=== PATIENT | female | born 1960 | race Caucasian/White ===

== ENCOUNTER 2024-05-02 08:20 | Outpatient (CLI) | payer MEDICAID ==
[~2024-05-02 08:20] MED LIST: ATOR20TA66 PO; DICL100G59 TOP; DOCU-391 PO; HYDR-3973 PO; MECL-302 PO; PHEN100C12 PO; SENN-263 PO; WARF-55 PO
== END 2024-05-02 23:59 | disposition home or self-care (01) ==
LOC: VAS 08:20
PROVIDERS: ATTEND Surgery
DX: I73.9 Peripheral vascular disease, unspecified (principal)
CPT/HCPCS: 93922; 93925

== ENCOUNTER 2024-08-30 12:37 | Outpatient (CLI) | payer MEDICAID ==
[~2024-08-30 12:37] MED LIST changes: -SENN-263 PO; +SENN-360 PO
== END 2024-08-30 23:59 | disposition home or self-care (01) ==
LOC: VAS 12:37
PROVIDERS: ATTEND Surgery
DX: I73.9 Peripheral vascular disease, unspecified (principal)
CPT/HCPCS: 93922; 93925

== ENCOUNTER 2025-05-24 09:39 | Outpatient (CLI) | payer MEDICAID ==
--- NOTE | 2025-05-24 13:36 | VASCULAR REPORT ---
Lower Extremity Duplex Doppler Reflux Study Date: 05/24/2025 10:06 AM Clinical History: Swelling Comparison: VASC VL JONATHON on DOS: 08/30/24, VASC VL ARTERIAL on DOS: 08/30/24, VASC VL JONATHON on DOS: 05/02/24, VASC VL ARTERIAL on DOS: 05/02/24, CT CT LOWER EXTREMITY on DOS: 02/01/24 Vein Imaging (Right) CFV (R): Compressible, Spontaneous, Respirophasic, Augmentation Reflux: ms SFJ (R): Compressible, Spontaneous, Respirophasic, Augmentation Reflux: ms FEM (R): Compressible, Spontaneous, Respirophasic, Augmentation Reflux: ms POP (R): Compressible, Spontaneous, Respirophasic, Augmentation Reflux: ms DFV (R): Compressible, Spontaneous, Respirophasic, Augmentation Reflux: ms PTV (R): Compressible, Spontaneous, Respirophasic, Augmentation Reflux: ms GSV (R): Previously harvested/ablated Reflux: ms Peroneals (R): Compressible, Spontaneous, Respirophasic, Augmentation Reflux: ms Vein Imaging (Left) CFV (L): Spontaneous, Respirophasic, Augmentation Reflux: ms Doppler Evaluation (Right) CFV (R): Spontaneous, Respirophasic POP (R):Spontaneous, Respirophasic Doppler Evaluation (Left) CFV (L):Spontaneous, Respirophasic CONCLUSION No sonographic evidence of thrombus within the right lower extremity. All interrogated vessels appear patent and demonstrate spontaneous, respirophasic waveforms. The contralateral common femoral vein appears patent. The right Great Saphenous vein appears previously harvested/ablated. Prominent lymph node noted within the right groin measuring 2.1 cm x 0.58 cm.END IMPRESSION:
== END 2025-05-24 23:59 | disposition home or self-care (01) ==
LOC: VAS 09:39
PROVIDERS: ATTEND Surgery
DX: M79.661 Pain in right lower leg (principal); R22.41 Localized swelling, mass and lump, right lower limb
CPT/HCPCS: 93971

== ENCOUNTER 2025-08-02 09:21 | Outpatient (CLI) | payer MEDICAID ==
--- NOTE | 2025-08-02 12:32 | VASCULAR REPORT ---
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 Right Ankle Brachial index: 0.98 2. Left Ankle Brachial Index: 1.00
--- NOTE | 2025-08-02 13:16 | VASCULAR REPORT ---
BILATERAL Lower Extremity Arterial Duplex Date: 08/02/2025 09:57 AM Clinical History: pain Comparison: VASC VL JONATHON on DOS: 08/02/25, VASC VL VENOUS on DOS: 05/24/25, VASC VL JONATHON on DOS: 08/30/24, VASC VL ARTERIAL on DOS: 08/30/24, VASC VL JONATHON on DOS: 05/02/24 Technique: Duplex Doppler evaluation including color Doppler and spectral/pulsed waveform analysis of the lower extremity arteries was performed. Finding: VELOCITY AND DOPPLER WAVEFORM ANALYSIS RIGHT cm/se Waveform Severity LEFT cm/se Waveform Severity C c dCFA 163.7 Multiphasic dCFA 141.3 Multiphasic Prof Fem 105.0 Multiphasic Prof Fem 67.4 Multiphasic Art. Art. Fem Art 126.6 Multiphasic Fem Art 109.1 Multiphasic Prox. Prox. Fem Art 0.0 Occluded Occluded Fem Art 86.2 Multiphasic Mid Mid. Fem Art 0.0 Occluded Occluded Fem Art 65.0 Multiphasic Dist. Dist. Pop Art(AK) Pop Art(AK) 46.0 Multiphasic Pop Art(BK) 0.0 Occluded Occluded Pop Art(BK) 58.1 Multiphasic HOME VISITOR Prox. 83.0 Multiphasic HOME VISITOR Prox. HOME VISITOR Dist. 78.2 Multiphasic HOME VISITOR Dist. 70.1 Multiphasic Per Art Dist. 30.7 Multiphasic Per Art Dist. 72.2 Multiphasic BREANA Mid. Retrograde BREANA Mid. BREANA Dist. 0.0 Occluded Occluded BREANA Dist. 118.0 Multiphasic DPA 17.5 Multiphasic DPA Prox. 106.0 Multiphasic Prox. 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 No other significant stenosis or occlusion noted within the lower extremities bilaterally. The right Fem-Tib bypass graft appears patent.
== END 2025-08-02 23:59 | disposition home or self-care (01) ==
LOC: VAS 09:21
PROVIDERS: ATTEND Surgery
DX: I73.9 Peripheral vascular disease, unspecified (principal); I77.1 Stricture of artery
CPT/HCPCS: 93922; 93925